=== PATIENT | male | born 1970 ===

== ENCOUNTER 2023-07-23 08:24 | Day surgery (SDC) | payer OTHER ==
[2023-07-17 13:26] VITALS: BMI 33.2
[2023-07-23] MEDS ORDERED: PROPOFOL 60 ML ONE (08:53)
[2023-07-23] MEDS ORDERED: Lidocaine 1% PF 5 ML VIAL ONE (08:53)
== END 2023-07-23 11:21 | disposition home or self-care (01) ==
LOC: SDC 08:24
PROVIDERS: ATTEND Internal Medicine Gastroenterology
PROC: 0DBN8ZZ Excision of Sigmoid Colon, Via Natural or Artificial Opening Endoscopic (ICD-10-PCS; principal; 2023-07-23)
PROC: 0DB58ZX Excision of Esophagus, Via Natural or Artificial Opening Endoscopic, Diagnostic (ICD-10-PCS; principal; 2023-07-23)
DX: Z12.11 Encounter for screening for malignant neoplasm of colon (principal); K63.5 Polyp of colon; K64.9 Unspecified hemorrhoids; K29.50 Unspecified chronic gastritis without bleeding; B96.81 Helicobacter pylori [H. pylori] as the cause of diseases classified elsewhere; I10 Essential (primary) hypertension; K21.9 Gastro-esophageal reflux disease without esophagitis; E78.5 Hyperlipidemia, unspecified; M54.50 Low back pain, unspecified; G47.30 Sleep apnea, unspecified; J32.9 Chronic sinusitis, unspecified; E11.9 Type 2 diabetes mellitus without complications; H90.5 Unspecified sensorineural hearing loss; J38.3 Other diseases of vocal cords; Z79.899 Other long term (current) drug therapy
CPT/HCPCS: 88305; 88342; J2704